=== PATIENT | female | born 1975 | race Caucasian/White ===

== ENCOUNTER 2017-02-04 16:57 | Emergency (ER) | payer OTHER ==
[2017-02-04 17:01] VITALS: BP 110/64; PULSE 77; TEMP 98.1
--- NOTE | 2017-02-04 20:01 | PDOC ---
History of Present Illness - General History Source: Patient Exam Limitations: No Limitations - History of Present Illness Initial Comments: 02/04/17 21:26 The patient is a 41 year old female, with a significant past medical history of an , who presents to the emergency department complaining of 2 months of vaginal bleeding s/p elective and Mirena IUD insertion. Patient reports current dark red vaginal bleeding with clots. Patient states she has been changing her pad every 45 minutes. Two weeks after the , patient reports following up with her FACILITY TECHNICIAN, during which she had an IUD inserted. Patient reports she has been bleeding lightly since, however, over the past week she has noted heavy bleeding. She reports associated left lower quadrant pain, nausea, and vomiting, but denies any diarrhea or constipation. She denies any associated fever, chills, or dizziness. She denies any dysuria, frequency, or urgency. She denies any recent travel or sick contacts. Allergies: NKDA Past Surgical History: None reported. Social History: Current everyday smoker. No ETOH or recreational drug use reported. <Venkatesh Medel - Last Filed: 02/04/17 23:44> <Mor Downing - Last Filed: 02/04/17 23:48> - General Chief Complaint: Pain Stated Complaint: ABD PAIN Time Seen by Provider: 02/04/17 20:01 Past History <Venkatesh Medel - Last Filed: 02/04/17 23:44> - Past Medical History Other medical history: NONE - Psycho/Social/Smoking Cessation Hx Anxiety: No Suicidal Ideation: No Smoking History: Current every day smoker Number of Cigarettes Smoked Daily: 15 Information on smoking cessation initiated: Yes 'Breaking Loose' booklet given: 02/04/17 Hx Alcohol Use: No Drug/Substance Use Hx: No Substance Use Type: None <Mor Downing - Last Filed: 02/04/17 23:48> - Past Medical History Allergies/Adverse Reactions: Allergies Allergy/AdvReac Type Severity Reaction Status Date / Time No Known Allergies Allergy Verified 02/04/17 17:01 Review of Systems - Review of Systems Able to Perform ROS?: Yes Comments:: 02/04/17 21:27 CONSTITUTIONAL: No fever, no chills, no fatigue EYES: No visual changes ENT: No ear pain, no sore throat CARDIOVASCULAR: No chest pain, no palpitations RESPIRATORY: No cough, no SOB GI: Yes: +Left lower quadrant abdominal pain, +nausea, +vomiting. No constipation, no diarrhea PELVIC: Yes: +Dark red vaginal bleeding with clots. GENITOURINARY: No dysuria, no frequency, no hematuria MUSKULOSKELETAL: No back pain, no joint pain, no myalgias SKIN: No rash NEURO: No headache <Venkatesh Medel - Last Filed: 02/04/17 23:44> *Physical Exam - Vital Signs Last Vital Signs Temp Pulse Resp BP Pulse Ox 98.1 F 77 20 110/64 100 02/04/17 16:58 02/04/17 16:58 02/04/17 16:58 02/04/17 16:58 02/04/17 16:58 - Physical Exam Comments: 02/04/17 21:27 CONSTITUTIONAL: Well-appearing; well-nourished; in no apparent distress HEAD: Normocephalic; atraumatic EYES: PERRL; EOM intact ENMT: External appears normal; normal oropharynx NECK: Supple; non-tender; no cervical lymphadenopathy CARD: Normal S1, S2; no murmurs, rubs, or gallops RESP: Normal chest excursion with respiration; breath sounds clear and equal bilaterally; no wheezes, rhonchi, or rales BACK: No cva tenderness ABD: Mild suprapubic and left lower quadrant tenderness. Soft, non-distended; no palpable organomegaly, no palpable hernias EXT: Normal ROM in all four extremities; non-tender to palpation; distal pulses intact SKIN: Warm, dry, no rash NEURO: No focal neurological deficiencies. <Venkatesh Medel - Last Filed: 02/04/17 23:44> - Vital Signs Last Vital Signs Temp Pulse Resp BP Pulse Ox 98.1 F 77 20 110/64 100 02/04/17 16:58 02/04/17 16:58 02/04/17 16:58 02/04/17 16:58 02/04/17 16:58 <Mor Downing - Last Filed: 02/04/17 23:48> ED Treatment Course - LABORATORY CBC & Chemistry Diagram: 02/04/17 21:40 02/04/17 21:40 - RADIOLOGY Radiograph Interpretation: 02/04/17 23:42 EXAM: Transvaginal US INTERPRETED BY: Dr. Olvera REVIEWED BY: Dr. Downing IMPRESSION: Intrauterine device in satisfactory position with normal thickness of the endometrial stripe. Fibroid uterus, as described above. Right ovary was not visualized. Left ovary exophytic cyst versus parapelvic cyst measuring 1.8 cm with a small amount of free fluid. Rule out partially ruptured cyst. Follow- up transvaginal pelvis ultrasound in one to 2 weeks is recommended for further evaluation. <Venkatesh Medel - Last Filed: 02/04/17 23:44> - LABORATORY CBC & Chemistry Diagram: 02/04/17 21:40 02/04/17 21:40 <Mor Downing - Last Filed: 02/04/17 23:48> Medical Decision Making - Medical Decision Making 02/04/17 23:37 Patient is a well-appearing 41-year-old female who presents to the ER with menometrorrhagia for the past 8 weeks after placement of a Mirena IUD. Patient also endorses history of mild left lower quadrant discomfort. In the ER, patient is awake and alert, hemodynamically stable. CBC is within normal limit. Transvaginal ultrasound shows an IUD in place with normal thickness endometrium. Fibroid uterus is noted. Also noted a small left ovarian cyst without evidence of torsion. At this time, patient is able tolerate by mouth and is pain free. Will discharge with OPERATIONS AND MAINTENANCE SPECIALIST follow-up for possible removal of IUD. <Mor Downing - Last Filed: 02/04/17 23:48> *DC/Admit/Observation/Transfer - Attestations Scribe Attestion: 02/04/17 21:27 Documentation prepared by Venkatesh Medel, acting as medical receptionist medical assistant for Mor Downing MD. <Venkatesh Medel - Last Filed: 02/04/17 23:44> - Attestations Physician Attestion: 02/04/17 23:36 The documentation was prepared by the scribe under my direct supervision. I have reviewed the documentation which correctly represents the findings, medical decision-making and critical action taken by me. <Mor Downing - Last Filed: 02/04/17 23:48> Diagnosis at time of Disposition: Vaginal bleeding Ovarian cyst Qualifiers: Laterality: left Qualified Code(s): N83.202 - Unspecified ovarian cyst, left side - Discharge Dispostion Disposition: HOME Condition at time of disposition: Stable - Referrals Referrals: mercury cracking tester, three-4 days [Other] - Patient Instructions Printed Discharge Instructions: Ovarian Cyst, DI for Vaginal Bleeding
[2017-02-04 21:47] LABS: BASOPHIL 0.7 % (0-2.0); EOSINOPHIL 1.5 % (0-4.5); MCH 30.5 pg (25.7-33.7); MCHC 34.1 g/dl (32.0-36.0); MEAN CELL VOLUME 89.5 fl (80-96); MEAN PLT VOLUME 9.1 fl (7.5-11.1); NEUTROPHILS 47.6 % (42.8-82.8); PLATELET COUNT 215 K/MM3 (134-434); RDW 14.1 % (11.6-15.6); WHITE BLOOD COUNT 6.9 K/mm3 (4.0-10.0)
[2017-02-04 22:33] LABS: ALBUMIN 3.4 g/dl (3.4-5.0); ANION GAP 7 (8-16); CALCIUM 9.1 mg/dL (8.5-10.1); CO2 29 mmol/L (21-32); CREATININE 0.6 mg/dL (0.55-1.02); GLUCOSE,RANDOM 98 mg/dL (74-106); SGOT/AST 9 U/L (15-37); SGPT/ALT 19 U/L (12-78)
[2017-02-04 22:36] LABS: ALK PHOS 59 U/L (45-117); BILIRUBIN,TOTAL 0.2 mg/dL (0.2-1.0); TOT PROT 6.8 g/dl (6.4-8.2)
== END 2017-02-04 23:53 | disposition home or self-care (01) ==
LOC: JER 16:57
DX: N93.8 Other specified abnormal uterine and vaginal bleeding (principal); N83.202 Unspecified ovarian cyst, left side
CPT/HCPCS: 36415; 76830-TC; 80053; 85025; 85610; 86850; 86900; 86901; 99281-25

== ENCOUNTER 2017-11-26 06:00 | Day surgery (SDC) | payer OTHER ==
[2017-11-25 13:28] VITALS: BMI 31.2
[2017-11-26] MEDS ORDERED: ceFAZolin SODIUM 1 GM VIAL IVPB ONE ×2 (08:15)
[2017-11-26] MEDS ORDERED: BUPIVACAINE HCL/PF 0.5% (5MG/ML) 10 ML VIAL IJ ONE (09:26)
[2017-11-26] MEDS ORDERED: ACETAMINOPHEN 325 MG TABLET (FP) PO PRN (09:49)
[2017-11-26] MEDS ORDERED: PROMETHAZINE HCL 25 MG/1 ML VIAL IVPUSH PRN (09:49)
[2017-11-26] MEDS ORDERED: LACTATED RINGERS SOLUTION 1,000 ML IV SCH (10:00)
--- NOTE | 2017-11-26 10:09 | OP ---
Operative Note - Note: Operative Date: 11/26/17 Pre-Operative Diagnosis: Lap band malfunction/leak Operation: Diagnostic laparoscopy. Laparoscopic removal and replacement of gastric band, port and components. Open repair of incarcerated incisional hernia. Omentectomy Post-Operative Diagnosis: Other (Lap band malfunction/leak, incarcerated incisional hernia) Surgeon: Tesfaye Buchanan Supervisor Park Workers: Donnie Gray Anesthesia: General Specimens Removed: Omentum. Lap band, port and components Estimated Blood Loss (mls): 5 Drains & Tubes with Location: Standard AP Lap Band Operative Report Dictated: Yes
[2017-11-26] MEDS ORDERED: morphine CARPU-JECT 4 MG/1 ML DISP.SYRIN IVPUSH PRN (10:30)
[2017-11-26] MEDS ORDERED: ONDANSETRON 4 MG/2 ML VIAL IVPUSH PRN (10:30)
[2017-11-26] MEDS ORDERED: ENOXAPARIN NA (PORCINE) 40 MG/0.4 ML DISP.SYRIN SQ ONE ×2 (10:30→13:00)
[2017-11-26] MEDS ORDERED: SODIUM CHLORIDE 1,000 ML IV SCH (10:30)
[2017-11-26] MEDS ORDERED: FAMOTIDINE 20 MG PREMIXED IVPB IVPB ONE (10:50)
[2017-11-26] MEDS ORDERED: ACETAMINOPHEN 1000 MG/100 ML VIAL (NON FORMULARY) IVPB ONE ×2 (11:04→11:11)
--- NOTE | 2017-11-26 11:06 | OP ---
DATE OF OPERATION: 11/26/2017 SURGEON: Tesfaye Buchanan MD TESTER ELECTRONIC SCALE: SAHARA Jorgensen PREOPERATIVE DIAGNOSIS: Lap band malfunction/leak. POSTOPERATIVE DIAGNOSES: 1. Lap band malfunction/leak. 2. Incarcerated incisional hernia. 3. Intraabdominal adhesions. PROCEDURES: 1. Diagnostic laparoscopy. 2. Laparoscopic removal of gastric band, port, and components. 3. Laparoscopic replacement of gastric band, port, and components. 4. Open repair of incarcerated incisional hernia. 5. Omentectomy. 6. Upper endoscopy/esophagogastroduodenoscopy 7. Laparoscopic lysis of adhesions. SPECIMENS: 1. Omentum. 2. Lap band, port, and components. ESTIMATED BLOOD LOSS: 5 mL. DRAINS: OG tube. BAND PLACED: Standard AP Lap band. ANESTHESIA: GET. REASON FOR PROCEDURE: This is a 42-year-old female who presents to the office for evaluation of her lap band. [place] She feels no more restriction. Multiple band fills were placed under ultrasound in the office; however, after aspiration after every single band fill, there was less and less fluid within the band, demonstrating that there was a leak. Because of this, she was consented for a laparoscopic, possible open, removal and replacement of gastric band, port, and components, possible liver biopsy, possible upper endoscopy. In addition, she had felt a bulge to the right of midline in her right upper quadrant at her prior incision consistent with a possible hernia. The risks and benefits of the procedure were explained. These included bleeding, infection, recurrence of hernia midline incision, DVT, PE, injury to surrounding abdominal structures including the stomach, liver, spleen, esophagus, colon, small bowel, vessel injury, nerve injury, leak obstruction, weight regain, stricture, vitamin deficiency, lap band slip and erosion are some of the complications. She understood and signed informed consent. DESCRIPTION OF PROCEDURE: Patient was placed supine on the operating room table. She underwent general endotracheal intubation. Foot board was placed and her legs were secured. The arms were placed out at 90 degrees, and her arms were secured. An OG tube was placed by Anesthesia. The abdomen was prepped and draped in the usual sterile fashion. A timeout was performed. An incision was made superior and to the right of the umbilicus and a Veress needle inserted. Pneumoperitoneum was established. Subsequently, the Veress needle was removed and the 5-mm laparoscopic trocar was placed under direct visualization. A 5-mm trocar was then placed in the right subcostal region. Adhesions were noted from omentum to the anterior abdominal wall, and the tubing was also adhered to it. Because of this, using hook electrocautery, the tubing and the omentum were freed from the abdominal wall. Lysis of adhesions was carefully performed, and hemostasis was noted. A 5-mm trocar was then placed in the left subcostal region, a 15-mm trocar placed superior and to the left of the umbilicus where the prior port had been placed. A stab wound was made in the subxiphoid area and a Janel clamp inserted and removed. Marielena liver retractor was inserted. This was secured to the post at the bedside. The patient was placed in reverse Trendelenburg position and the liver retractor secured. The tubing was noted, and using hook electrocautery, the band was dissected, staying on top of the band and its tubing. The band was freed circumferentially. The tubing of the band was then cut using scissors. The band was then cut and opened and removed from around the stomach. A new band was chosen. It was a Lap Band AP standard, and using the same plane, a grasper was placed behind the stomach and the band tubing grasped. The band was placed around the stomach, tubing placed through it, and the band buckle secured. The band was noted to be in good position. No evidence of slip or incarceration was noted. Endostitch with a 2-0 Ethibond suture was then used to further secure the band in position with a wrap. Again hemostasis was noted. On inspection of the abdominal cavity, there was also noted to be a small hernia at her incision that was cause of concern. The decision was made to fix this in an open fashion at the end of the procedure. The old band was then removed from the abdominal cavity and sent off to the back table. The band tubing was exteriorized. The liver retractor was removed and pneumoperitoneum desufflated. All trocars were removed. The band tubing was then secured to the port. The old port was removed in its entirety, and the tubing was noted to match. Four 2-0 Prolene sutures were placed within the fascia and used to secure the port. Again hemostasis was noted. Vicryl 3-0 was used to close the deep subcutaneous tissue at this site. An incision was then made over the level of the hernia defect, skin and subcutaneous tissue dissected. Incarcerated omentum was noted within the hernia. This was carefully transected and sent off the field as an omentectomy. The hernia was closed using a 0 Vicryl suture in a [id number] fashion. Hemostasis was noted. The deep subcutaneous tissue was then closed using 3-0 Vicryl suture as well. Biosyn 4-0 was used to close all incisions. An upper endoscopy was then performed to further evaluate the anatomy. No leak or obstruction was noted. The patient tolerated the procedure well, was transferred to the recovery room in stable condition. Lizzie [id number]
[2017-11-26] MEDS ORDERED: ONDANSETRON 4 MG/2 ML VIAL IVPUSH ONE (11:35)
[2017-11-26 11:47] LABS: HEMATOCRIT 36.4 % (32.4-45.2); HEMOGLOBIN 12.4 GM/dL (10.7-15.3); MCH 30.4 pg (25.7-33.7); MEAN CELL VOLUME 89.6 fl (80-96); PLATELET COUNT 206 K/MM3 (134-434); RBC 4.07 M/mm3 (3.60-5.2); RDW 13.7 % (11.6-15.6); WHITE BLOOD COUNT 8.5 K/mm3 (4.0-10.0)
[2017-11-26 13:41] LABS: CHLORIDE 106 mmol/L (98-107); POTASSIUM 3.6 mmol/L (3.5-5.1); SODIUM 137 mmol/L (136-145)
[2017-11-26] MEDS ORDERED: FAMOTIDINE 20 MG/50 ML IVPB 20 MG/50 ML MG IVPB SCH (14:00)
[2017-11-26 14:06] VITALS: TEMP 98.1
[2017-11-26 14:10] LABS: ANION GAP 10 (8-16); BLOOD UREA NITROGEN 8 mg/dL (7-18); CALCIUM 8.4 mg/dL (8.5-10.1); CO2 21 mmol/L (21-32); CREATININE 0.6 mg/dL (0.55-1.02); GLUCOSE,RANDOM 132 mg/dL (74-106)
[2017-11-27 08:13] VITALS: BP 135/58; PULSE 82
--- NOTE | 2017-11-27 12:26 | PATH ---
Surgical Pathology Report Patient Name: BA ALVAREZ [facility]. Rec. #: [id number] /Age/Gender: 1975 (Age: 42) / F Account: [id number] Location: [facility] Taken: 11/26/2017 Received: 11/26/2017 Reported: 11/27/2017 Physicians: Tesfaye Buchanan M.D. Specimen(s) Received A: GASTRIC BAND AND SUBCUTANEOUS PORT B: OMENTUM Clinical History Gastric band malfunction Incarcerated incisional hernia Final Diagnosis A. GASTRIC BAND AND PORT, REMOVAL: GASTRIC BAND AND PORT. MACROSCOPIC DIAGNOSIS. B. OMENTUM, EXCISION: OMENTAL ADIPOSE TISSUE WITHOUT SIGNIFICANT PATHOLOGIC FINDINGS. Electronically Signed Keyana Hui M.D. Gross Description A. Received fresh labeled "gastric band and port," are 2 portions of a disrupted gastric band measuring 5.0 x 2.0 x 1.0 cm with an attached 28 cm in length portion of white tubing. Also received within the same container is a 3 cm in diameter x 1.5 cm in depth white, circular device, consistent with a port. The port displays a 33 cm in length portion of white tubing extending from one aspect. No soft tissue is present. No sections are submitted, gross only. B. Received in formalin labeled as "omentum" multiple fragments of yellow lobulated omental adipose soft tissue measuring 3.5 x 2 x 1 cm in aggregate. Diesel Truck Technician sections are submitted in one cassette. GODWIN/11/26/2017 jannie/11/26/2017
== END 2017-11-26 16:00 | disposition home or self-care (01) ==
LOC: JASU-SURG 06:00
PROVIDERS: ATTEND Surgery
PROC: 0DV64CZ Restriction of Stomach with Extraluminal Device, Percutaneous Endoscopic Approach (ICD-10-PCS; 2017-11-26)
PROC: 0WQF0ZZ Repair Abdominal Wall, Open Approach (ICD-10-PCS; 2017-11-26)
PROC: 0DBU0ZZ Excision of Omentum, Open Approach (ICD-10-PCS; 2017-11-26)
PROC: 0DJ08ZZ Inspection of Upper Intestinal Tract, Via Natural or Artificial Opening Endoscopic (ICD-10-PCS; 2017-11-26)
PROC: 0DP64CZ Removal of Extraluminal Device from Stomach, Percutaneous Endoscopic Approach (ICD-10-PCS; principal; 2017-11-26 08:00)
DX: T85.518A Breakdown (mechanical) of other gastrointestinal prosthetic devices, implants and grafts, initial encounter (principal); K95.09 Other complications of gastric band procedure; Y93.89 Activity, other specified; Y92.89 Other specified places as the place of occurrence of the external cause; K43.2 Incisional hernia without obstruction or gangrene; K66.0 Peritoneal adhesions (postprocedural) (postinfection)
CPT/HCPCS: 36415; 74241-TC-FY; 80048; 84703; 85027; 88300-TC; 88305-TC; 94760; J0131

== ENCOUNTER 2018-02-18 06:19 | Day surgery (SDC) | payer OTHER ==
[2018-01-19 12:41] VITALS: BMI 30.7
[2018-02-18] MEDS ORDERED: DEXAMETHASONE SOD PHOSPHATE 4 MG/1 ML VIAL ONE (07:18)
[2018-02-18] MEDS ORDERED: SUCCINYLCHOLINE CHLORIDE 200 MG/10 ML VIAL ONE (07:18)
[2018-02-18] MEDS ORDERED: PROPOFOL 20 ML ONE (07:18)
[2018-02-18] MEDS ORDERED: ONDANSETRON 4 MG/2 ML VIAL ONE (07:18)
[2018-02-18] MEDS ORDERED: ceFAZolin SODIUM 1 GM VIAL ONE ×2 (07:18→08:42)
[2018-02-18] MEDS ORDERED: ROCURONIUM BROMIDE 50 MG/5 ML VIAL ONE (07:18)
[2018-02-18] MEDS ORDERED: LIDOCAINE HCL/PF 2% SDV 5ML VIAL ONE (07:18)
[2018-02-18] MEDS ORDERED: fentaNYL CITRATE 250 MCG/5 ML VIAL ONE (07:18)
[2018-02-18] MEDS ORDERED: BUPIVACAINE HCL/PF 0.5% (5MG/ML) 10 ML VIAL ONE (07:33)
[2018-02-18] MEDS ORDERED: ROPIVACAINE HCL 0.5% 30ML VIAL ONE (07:45)
[2018-02-18] MEDS ORDERED: DEXAMETHASONE SOD PHOSPHATE/PF 10 MG/ML SDV ONE (07:45)
[2018-02-18] MEDS ORDERED: MIDAZOLAM HCL 2 MG/2 ML SINGLE DOSE VIAL ONE ×2 (07:46)
[2018-02-18] MEDS ORDERED: LIDOCAINE 1%/EPI 1:100000 (20 ML MULTI DOSE VIAL) ONE (08:23)
[2018-02-18] MEDS ORDERED: ceFAZolin SODIUM 1 GM VIAL IVPB ONE (08:40)
[2018-02-18] MEDS ORDERED: LIDOCAINE 1%/EPI 1:100000 (20 ML MULTI DOSE VIAL) IJ ONE (08:48)
[2018-02-18] MEDS ORDERED: BUPIVACAINE HCL/PF 0.5% (5MG/ML) 10 ML VIAL IJ ONE (09:15)
[2018-02-18 11:21] VITALS: BP 107/59; PULSE 62; TEMP 98
--- NOTE | 2018-02-18 11:32 | HP ---
Satellite [facility] - Chief Complaint Chief Complaint: Discomfort at port site, rotation of port History Source: Patient Limitations to Obtaining History: No Limitations - Past Medical History Allergies/Adverse Reactions: Allergies Allergy/AdvReac Type Severity Reaction Status Date / Time No Known Allergies Allergy Verified 01/19/18 12:35 ...LMP: 01/14/18 - Current Medications Current Medications: Home Medications Medication Instructions Recorded NK [No Known Home Medication] 01/19/18 Satellite Physical Exam - Physical Examination Vital Signs: Vital Signs Period Temp Pulse Resp BP Sys/[place] Pulse Ox Last 24 Hr 98 F-98.4 F 62-74 18-20 101-121/59-61 96-100 Lung: Clear to auscultation Heart: Regular rate & rhythm Abdomen: Soft Neurological: Alert, Oriented Satellite Impression/Plan - Impression/Plan Impression: Port site discomfort/rotation Operative Procedure: Revision of gastric port Date to be Performed: 02/18/18
--- NOTE | 2018-02-18 11:33 | OP ---
Operative Note - Note: Operative Date: 02/18/18 Pre-Operative Diagnosis: Gastric port discomfort/rotation Operation: Revision of gastric port. Excision of scar Post-Operative Diagnosis: Same as Pre-op Surgeon: Tesfaye Buchanan Journeyman Electrician: Asif Nur Anesthesia: Local, MAC Specimens Removed: Scar Estimated Blood Loss (mls): 5 Operative Report Dictated: Yes
--- NOTE | 2018-02-18 12:24 | OP ---
DATE OF OPERATION: 02/18/2018 SURGEON: Tesfaye Buchanan MD MANAGER GOVERNMENT: Asif Nur MD PREOPERATIVE DIAGNOSIS: Malfunctioning gastric port/rotation of gastric port. POSTOPERATIVE DIAGNOSIS: Malfunctioning gastric port/rotation of gastric port. PROCEDURE: Open revision of gastric port and except of subcutaneous skin and scar. SPECIMEN: Scar/skin. ESTIMATED BLOOD LOSS: 5 mL. DRAINS: None. ANESTHESIA: MAC/local. REASON FOR PROCEDURE: This is a 42-year-old female who had a gastric band placed. She noted that she was having some discomfort at her port site, and the port seemed to have also rotated slightly. Because of this, revision of port was planned. The risks and benefits of the procedure were explained. These included bleeding, infection, hernia, NC, DVT, PE, injury to surrounding structures including the port and band tubing, subcutaneous seroma, hematoma and some other complications. She understood and signed informed consent. DESCRIPTION OF PROCEDURE: The patient was placed on the operating room table. The abdomen was prepped and draped in the usual sterile fashion. A time-out was performed. The old scar and skin was excised, and skin and subcutaneous tissue dissected out to the level of the port. The port was noted to be slightly rotated; however, it was noted to be in good position. The port was secured using a 2-0 Prolene suture down to the fascia at one of the holes within the port in order to decrease the rotation of the port. Again, the remainder of the port was noted to be in good position. To assist with burying the port further, the subcutaneous fat and tissue was sutured over the tubing and port using 3-0 Vicryl sutures. Hemostasis was obtained. The skin was closed using 4-0 Biosyn. Sterile dressings were applied. The patient tolerated the procedure well and was transferred to the recovery room in stable condition. Lizzie [id number]
--- NOTE | 2018-02-19 15:10 | PATH ---
Surgical Pathology Report Patient Name: BA ALVAREZ Med. Rec. #: [id number] /Age/Gender: 1975 (Age: 42) / F Account: [id number] Location: [facility] Taken: 02/18/2018 Received: 02/18/2018 Reported: 02/19/2018 Physicians: Tesfaye Buchanan M.D. Specimen(s) Received SCAR TISSUE Clinical History Morbid obesity Final Diagnosis SKIN, SCAR, EXCISION: SKIN WITH CHRONIC INFLAMMATION AND DERMAL FIBROSIS CONSISTENT WITH SCAR. Electronically Signed Keyana Hui M.D. Gross Description Received in formalin labeled "scar," is a 3.3 x 0.4 cm ruff, elongated, unoriented portion of skin excised to a depth of 0.7 cm. The epidermal surface displays a central, linear scar. Appliance Servicer sections are submitted in one cassette. /02/18/2018 saudi02/18/2018
== END 2018-02-18 11:30 | disposition home or self-care (01) ==
LOC: JASU-SURG 06:19
PROVIDERS: ATTEND Surgery
PROC: 0DW60CZ Revision of Extraluminal Device in Stomach, Open Approach (ICD-10-PCS; principal; 2018-02-18 08:00)
DX: K95.09 Other complications of gastric band procedure (principal)
CPT/HCPCS: 36415; 84703; 86850; 86900; 86901; 88304-TC

== ENCOUNTER 2018-02-19 22:43 | Emergency (ER) | payer OTHER ==
[2018-02-19 22:58] VITALS: BP 123/77; PULSE 70; TEMP 98.5; BMI 30.7
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
== END 2018-02-19 23:41 | disposition home or self-care (01) ==
LOC: JER 22:43
DX: Z48.815 Encounter for surgical aftercare following surgery on the digestive system (principal)
CPT/HCPCS: 99281-25

== ENCOUNTER 2018-02-28 13:09 | Inpatient (IN) | payer OTHER ==
[2018-02-28 13:17] VITALS: BMI 30.2
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
[2018-02-28] MEDS ORDERED: ACETAMINOPHEN INJECTION 100 ML IVPB ONE ×2 (13:54→21:57)
[2018-02-28] MEDS ORDERED: ACETAMINOPHEN 1000 MG/100 ML VIAL (NON FORMULARY) IVPB ONE ×2 (13:56→21:38)
[2018-02-28 14:10] LABS: BASO % 0.6 % (0-2.0); HEMATOCRIT 40.1 % (32.4-45.2); HEMOGLOBIN 13.6 GM/dL (10.7-15.3); LYMPH % 18.9 % (8-40); MCH 30.3 pg (25.7-33.7); MCHC 33.9 g/dl (32.0-36.0); MEAN CELL VOLUME 89.4 fl (80-96); MEAN PLT VOLUME 8.6 fl (7.5-11.1); MONO % 5.3 % (3.8-10.2); NEUT % 71.2 % (42.8-82.8); PLATELET COUNT 237 K/MM3 (134-434); RBC 4.49 M/mm3 (3.60-5.2); WHITE BLOOD COUNT 9.5 K/mm3 (4.0-10.0)
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
[2018-02-28 14:37] LABS: ALBUMIN 3.5 g/dl (3.4-5.0); ALK PHOS 81 U/L (45-117); ANION GAP 11 MMOL/L (8-16); BILIRUBIN,TOTAL 0.5 mg/dL (0.2-1.0); BLOOD UREA NITROGEN 13 mg/dL (7-18); CALCIUM 9.1 mg/dL (8.5-10.1); CHLORIDE 109 mmol/L (98-107); CO2 23 mmol/L (21-32); CREATININE 0.8 mg/dL (0.55-1.3); GLUCOSE,RANDOM 115 mg/dL (74-106); LIPASE 118 U/L (73-393); POTASSIUM 4.1 mmol/L (3.5-5.1); SGOT/AST 28 U/L (15-37); SGPT/ALT 32 U/L (13-61); SODIUM 143 mmol/L (136-145); TOT PROT 7.6 g/dl (6.4-8.2)
[2018-02-28 14:41] LABS: HCG,QUALITATIVE URINE Negative
[2018-02-28 14:42] LABS: URINE APPEARANCE SLCLOUDY; URINE BILIRUBIN NEGATIVE (<2.0 mg/dL); URINE COLOR YELLOW; URINE GLUCOSE (UA) NEGATIVE (NEGATIVE); URINE KETONE TRACE (NEGATIVE); URINE LEUK ESTERASE 3+ (NEGATIVE); URINE NITRITE NEGATIVE (NEGATIVE); URINE PROTEIN NEGATIVE (NEGATIVE); URINE UROBILINOGEN NEGATIVE mg/dL (0.2-1.0)
[2018-02-28 14:54] LABS: EPI CELLS FEW /HPF (FEW); URINE MUCUS RARE
[2018-02-28] MEDS ORDERED: morphine CARPU-JECT 4 MG/1 ML DISP.SYRIN IVPUSH ONE (15:05)
[2018-02-28] MEDS ORDERED: morphine SULFATE 4 MG/ML VIAL ONE ×2 (15:07→18:19)
[2018-02-28] MEDS ORDERED: CEFAZOLIN 1 GM in DEXTROSE 5%-WATER - 50 ML IVPB ONE (18:00)
[2018-02-28] MEDS ORDERED: ceFAZolin SODIUM 1 GM VIAL ONE (18:17)
[2018-02-28] MEDS ORDERED: MORPHINE SULFATE 2 MG/ML VIAL ONE (18:18)
[2018-02-28] MEDS ORDERED: ONDANSETRON 4 MG/2 ML VIAL ONE (18:30)
[2018-02-28] MEDS ORDERED: morphine CARPU-JECT 10 MG/1 ML DISP.SYRIN IVPUSH ONE (18:30)
[2018-02-28] MEDS ORDERED: ONDANSETRON 4 MG/2 ML VIAL IVPUSH ONE (18:44)
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
[2018-02-28] MEDS ORDERED: ONDANSETRON 4 MG/2 ML VIAL IVPUSH PRN (21:46)
[2018-02-28] MEDS: DEXTROSE 5%-0.45% SALINE 1,000 ML IV SCH (21:56)
[2018-02-28] MEDS ORDERED: MELATONIN 5 MG TABLETS PO ONE (23:58)
[2018-03-01] MEDS: morphine SULFATE 4 MG/ML VIAL IVPUSH PRN ×2 (00:08→05:42)
[2018-03-01] MEDS ORDERED: ceFAZolin SODIUM 1 GM VIAL ONE ×3 (01:58→17:09)
[2018-03-01] MEDS ORDERED: DEXTROSE 5%-WATER - 50 ML IVPB ONE ×3 (01:58→17:09)
[2018-03-01] MEDS: CEFAZOLIN 1 GM in DEXTROSE 5%-WATER - 50 ML IVPB SCH ×3 (03:11→17:43)
[2018-03-01 07:26] LABS: BASO % 0.6 % (0-2.0); EOS % 6.4 % (0-4.5); HEMATOCRIT 34.7 % (32.4-45.2); HEMOGLOBIN 11.5 GM/dL (10.7-15.3); LYMPH % 28.6 % (8-40); MCH 29.5 pg (25.7-33.7); MCHC 33.2 g/dl (32.0-36.0); MEAN CELL VOLUME 88.9 fl (80-96); MEAN PLT VOLUME 8.9 fl (7.5-11.1); MONO % 6.8 % (3.8-10.2); NEUT % 57.6 % (42.8-82.8); PLATELET COUNT 213 K/MM3 (134-434); RDW 14.2 % (11.6-15.6); WHITE BLOOD COUNT 7.8 K/mm3 (4.0-10.0)
[2018-03-01 07:59] LABS: ANION GAP 11 MMOL/L (8-16); BLOOD UREA NITROGEN 6 mg/dL (7-18); CALCIUM 8.4 mg/dL (8.5-10.1); CHLORIDE 105 mmol/L (98-107); CO2 24 mmol/L (21-32); CREATININE 0.5 mg/dL (0.55-1.3); GLUCOSE,RANDOM 92 mg/dL (74-106); MAGNESIUM 2.1 mg/dL (1.8-2.4); PHOSPHOROUS 3.4 mg/dL (2.5-4.9); POTASSIUM 3.7 mmol/L (3.5-5.1); SODIUM 140 mmol/L (136-145)
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
[2018-03-01] MEDS ORDERED: morphine SULFATE 4 MG/ML VIAL IVPUSH PRN (08:24)
[2018-03-01] MEDS ORDERED: diazePAM CARPU-JECT 10 MG/2 ML DISP.SYRIN IVPUSH ONE (08:24)
[2018-03-01] MEDS: DEXTROSE 5%-0.45% SALINE 1,000 ML IV SCH ×2 (09:29→21:40)
[2018-03-01] MEDS ORDERED: SODIUM CHLORIDE 250 ML IV SCH (11:15)
[2018-03-01] MEDS ORDERED: FAMOTIDINE 20 MG/50 ML IVPB 20 MG/50 ML MG IVPB SCH (11:30)
[2018-03-01] MEDS: KETOROLAC TROMETHAMINE 15 MG/ML VIAL IVPUSH PRN ×2 (15:39→23:36)
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
--- NOTE | 2018-03-01 18:01 | CON.PSY ---
Psychiatry Consult Chief Complaint: I aM FINE, I dont have any mental problems. Never seen a Psychaitrist in my life. - Previous Psychiatric Treatment Outpatient: None Inpatient: None - Previous Substance Abuse Treatment Outpatient: None Inpatient: None - Current Medications Current Medications: Active Medications Dextrose/Sodium Chloride (D5-1/2ns -) 1,000 mls @ 100 mls/hr IV ASDIR CITLALY Last Admin: 03/01/18 09:29 Dose: 100 mls/hr Cefazolin Sodium 1 gm/ (Dextrose) 50 mls @ 100 mls/hr IVPB Q8H-IV CITLALY Last Admin: 03/01/18 17:43 Dose: 100 mls/hr Sodium Chloride (Normal Saline -) 250 mls @ 250 mls/hr IV ASDIR CITLALY Last Admin: 03/01/18 11:00 Dose: 250 mls/hr Famotidine/Sodium Chloride (Pepcid 20 Mg Premixed Ivpb -) 20 mg in 50 mls @ 100 mls/hr IVPB DAILY CITLALY Last Admin: 03/01/18 11:45 Dose: 100 mls/hr Ketorolac Tromethamine (Toradol Injection -) 15 mg IVPUSH Q6H PRN PRN Reason: PAIN SCALE 6-10 Stop: 03/06/18 11:15 Last Admin: 03/01/18 15:39 Dose: 15 mg Ondansetron HCl (Zofran Injection) 4 mg IVPUSH Q6H PRN PRN Reason: NAUSEA - Allergies Allergies: Allergies Allergy/AdvReac Type Severity Reaction Status Date / Time No Known Allergies Allergy Verified 02/28/18 13:17 - Current Living Status Usual Living Arrangement: With Child - Current Mental Status Evaluation Appearance: Well Groomed Attitude: Cooperative - Affect Affect: Full Range Appropriateness: Appropriate to Content - Mood Mood: Euthymic - Speech/Language Expressive: Coherent - Psychomotor Activity Psychomotor Activity: Normal - Thought Process Thought Process: Intact - Thought Content Hallucinations: Absent Delusions: Absent - Self Perception Self Perception: No Impairment - Cognition Attention: Alert Orientation: Time Memory, Immediate Recall: Intact Memory, Short Term: 3/3 Memory, Remote with Promptin/3 - Concentration Serial Sevens Intact: Yes Simple Calculations Intact: Yes - Abstraction Proverb Interpretation: Intact Judgement: Intact - Insight Insight: Intact - Impulse Control Impulse Control: Good Control - Suicidal Ideation Suicidal Ideation: No - Homicidal Ideation Homicidal Ideation: No Assessment/Plan 1) no psych meds recemmended. 2) Re eval as needed.
[2018-03-02] MEDS ORDERED: DEXTROSE 5%-WATER - 50 ML IVPB ONE (01:12)
[2018-03-02] MEDS ORDERED: ceFAZolin SODIUM 1 GM VIAL ONE (01:12)
[2018-03-02] MEDS: CEFAZOLIN 1 GM in DEXTROSE 5%-WATER - 50 ML IVPB SCH (01:18)
[2018-03-02] MEDS: DEXTROSE 5%-0.45% SALINE 1,000 ML IV SCH (04:25)
[2018-03-02 05:46] VITALS: TEMP 98.5
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
[2018-03-02 09:30] VITALS: BP 85/60; PULSE 94
[2018-03-02] MEDS ORDERED: BACITRACIN 15 GM TUBE TOPICAL OINTMENT TP SCH (10:00)
== END 2018-03-02 09:34 | disposition home or self-care (01) | DRG 384 ==
LOC: JER 13:09 → JERBED 21:29 → J8W 22:23
PROVIDERS: ADMIT Internal Medicine; ATTEND Family Medicine
DX: S30.1XXA Contusion of abdominal wall, initial encounter (principal); K95.09 Other complications of gastric band procedure; E66.01 Morbid (severe) obesity due to excess calories; F17.210 Nicotine dependence, cigarettes, uncomplicated; M48.9 Spondylopathy, unspecified; Y84.8 Other medical procedures as the cause of abnormal reaction of the patient, or of later complication, without mention of misadventure at the time of the procedure; V89.2XXA Person injured in unspecified motor-vehicle accident, traffic, initial encounter; Y93.89 Activity, other specified; Y92.488 Other paved roadways as the place of occurrence of the external cause; Y99.8 Other external cause status; M54.2 Cervicalgia; Z68.30 Body mass index [BMI] 30.0-30.9, adult
CPT/HCPCS: 36415; 74177-TC; 80048; 80053; 81003; 81015; 83605; 83690; 83735; 84100; 84703; 85025; 87086; 99284-25; J0131

== ENCOUNTER 2019-12-23 19:02 | Emergency (ER) | payer OTHER ==
--- NOTE | 2019-12-23 19:10 | PDOC ---
Rapid Medical Evaluation Time Seen by Provider: 12/23/19 19:06 Medical Evaluation: Allergies Allergy/AdvReac Type Severity Reaction Status Date / Time No Known Allergies Allergy Verified 09/02/19 18:28 12/23/19 19:07 CC: cooking with vinegar which triggered a dry hacking cough but a few days prior had itchy eyes and sneezing and took otc meds with mod effect. denies fever, + itching so took benadryl and dayquil 1 hr ago Exam: raspy voice, vss, insp wheeze to rt side, appears dyspneic 12/23/19 19:12 Discharge Disposition - Diagnosis Allergic reaction - Referrals - Patient Instructions - Post Discharge Activity
[2019-12-23 19:11] VITALS: BP 130/106; PULSE 77; TEMP 98; BMI 30.7
[2019-12-23] MEDS ORDERED: predniSONE 20 MG TABLET (UD) PO ONE (19:11)
[2019-12-23] MEDS ORDERED: diphenhydrAMINE HCL 25 MG CAPSULE (FP) PO ONE ×3 (19:11→19:28)
[2019-12-23] MEDS ORDERED: predniSONE 20 MG TABLET (UD) ONE (19:29)
--- NOTE | 2019-12-23 19:35 | PDOC ---
History of Present Illness - General Chief Complaint: Allergic Reaction Stated Complaint: SOB/ DIFF BREATHING Time Seen by Provider: 12/23/19 19:06 History Source: Patient - History of Present Illness Timing/Duration: reports: other Past History - Medical History Allergies/Adverse Reactions: Allergies Allergy/AdvReac Type Severity Reaction Status Date / Time No Known Allergies Allergy Verified 12/23/19 19:12 Home Medications: Ambulatory Orders Fluticasone Prop 0.05% Nasal [Flonase -] 1 - 2 spray NS BID #1 spray.pump 12/23/19 Loratadine [Claritin] 10 mg PO DAILY #14 tablet 12/23/19 predniSONE [Deltasone -] 40 mg PO DAILY #8 tablet 12/23/19 Anemia: Yes COPD: No - Surgical History Abdominal Surgery: Yes (lap band) - Immunization History Immunization Up to Date: Yes - Psycho-Social/Smoking History Smoking History: Never smoked Have you smoked in the past 12 months: Yes Number of Cigarettes Smoked Daily: 20 Cigars Per Day: 20 'Breaking Loose' booklet given: 11/26/17 - Substance Abuse Hx (Audit-C & DAST Scrn) How often the patient has a drink containing alcohol: Never Score: In Men: 4 or > Positive; In Women: 3 or > Positive: 0 Screen Result (Pos requires Nsg. Audit-10AR): Negative Review of Systems - Review of Systems Constitutional: No: Chills, Fever HEENTM: Yes: Nose Congestion Respiratory: Yes: Cough. No: Shortness of Breath, Stridor, Wheezing Integumentary: No: Pruritus, Rash *Physical Exam - Vital Signs Last Vital Signs Temp Pulse Resp BP Pulse Ox 98 F 77 20 130/106 H 97 12/23/19 19:09 12/23/19 19:09 12/23/19 19:09 12/23/19 19:09 12/23/19 19:09 - Physical Exam General Appearance: Yes: Appropriately Dressed. No: Apparent Distress HEENT: positive: Other (minimal periorbital edema, no chemosis or tearing) Respiratory/Chest: positive: Lungs Clear, Normal Breath Sounds. negative: Respiratory Distress Cardiovascular: positive: Regular Rate, S1, S2 Integumentary: positive: Dry, Warm. negative: Rash Neurologic: positive: Fully Oriented, Alert, Normal Mood/Affect Medical Decision Making - Medical Decision Making 12/23/19 19:29 44 yo F, no pmhx, here w/ nasal congestion, sneezing, coughing and mild b/l srinivasan-orbital edema x several days. No SOB, CP, loss of taste, smell, f/c. States 1 day prior to onset of sxs, pt states she had artificial lashes placed but has since had salon remove them as pt states she thought lashes were cause of her sxs. No itching to eyes or rash see exam Allergic rhinitis Dc w/ symptomatic tx To return as needed Discharge - Discharge Information Problems reviewed: Yes Clinical Impression/Diagnosis: Allergic reaction Qualifiers: Encounter type: initial encounter Qualified Code(s): T78.40XA - Allergy, unspecified, initial encounter Condition: Good Disposition: HOME - Additional Discharge Information Prescriptions: Loratadine [Claritin] 10 mg PO DAILY #14 tablet predniSONE [Deltasone -] 40 mg PO DAILY #8 tablet Fluticasone Prop 0.05% Nasal [Flonase -] 1 - 2 spray NS BID #1 spray.pump - Follow up/Referral Referrals: Justin Sanchez MD [Primary Care Provider] - - Patient Discharge Instructions Patient Printed Discharge Instructions: Allergic Rhinitis Additional Instructions: Take medications as directed and return for any worsening of symptoms - Post Discharge Activity
== END 2019-12-23 19:38 | disposition home or self-care (01) ==
LOC: JERFT 19:02
DX: T78.40XA Allergy, unspecified, initial encounter (principal)
CPT/HCPCS: 99284-25

== ENCOUNTER 2021-01-18 18:12 | Emergency (ER) | payer OTHER ==
[2021-01-18 18:55] VITALS: BP 105/67; PULSE 99; TEMP 98.4
[2021-01-18 20:25] LABS: BASO % 0.9 % (0-2.0); EOS % 1.6 % (0-4.5); HEMOGLOBIN 14.7 GM/dL (10.7-15.3); LYMPH % 34.4 % (8-40); MCH 31.7 pg (25.7-33.7); MEAN CELL VOLUME 90.6 fl (80-96); MEAN PLT VOLUME 8.4 fl (7.5-11.1); MONO % 4.7 % (3.8-10.2); NEUT % 58.4 % (42.8-82.8); PLATELET COUNT 265 10^3/uL (134-434); RBC 4.64 M/mm3 (3.60-5.2); RDW 14.2 % (11.6-15.6); WHITE BLOOD COUNT 9.1 K/mm3 (4.0-10.0)
[2021-01-18 20:32] LABS: INR 0.9 (0.83-1.09); PROTHROMBIN TIME (PATIENT) 10.9 SEC (9.7-13.0)
[2021-01-18 20:46] LABS: ALBUMIN 3.7 g/dl (3.4-5.0); BLOOD UREA NITROGEN 7.9 mg/dL (7-18); CALCIUM 8.9 mg/dL (8.5-10.1)
[2021-01-18 20:49] LABS: CREATININE 0.8 mg/dL (0.55-1.3)
[2021-01-18 20:51] LABS: BILIRUBIN,TOTAL 0.2 mg/dL (0.2-1); TOT PROT 7.5 g/dl (6.4-8.2)
[2021-01-18 22:04] LABS: EPI CELLS >36 /uL (0-25.1); HCG,QUALITATIVE URINE Negative; HYALINE CASTS 1 /uL (0-3.1); URINE APPEARANCE CLEAR; URINE BACTERIA 203 /uL (0-1359); URINE BILIRUBIN NEGATIVE (NEGATIVE); URINE COLOR YELLOW; URINE GLUCOSE (UA) NEGATIVE (NEGATIVE); URINE KETONE NEGATIVE (NEGATIVE); URINE LEUK ESTERASE TRACE (NEGATIVE); URINE NITRITE NEGATIVE (NEGATIVE); URINE PROTEIN NEGATIVE (NEGATIVE); URINE RBC 13 /uL (0-23.9); URINE UROBILINOGEN 0.2 mg/dL (0.2-1.0); URINE WBC 50 /uL (0-25.8)
== END 2021-01-18 23:36 | disposition home or self-care (01) ==
LOC: JER 18:12
DX: R10.32 Left lower quadrant pain (principal)
CPT/HCPCS: 36415; 74177-TC; 80053; 81003; 83690; 84703; 85025; 85610; 99285-25; Q9967

== ENCOUNTER 2021-06-15 16:24 | Emergency (ER) | payer OTHER ==
[2021-06-15 16:42] VITALS: BP 107/60; PULSE 87; TEMP 98.1; BMI 28.8
[2021-06-15] MEDS ORDERED: DEXAMETHASONE LIQUID 0.5 MG/5 ML PO ONE (18:05)
[2021-06-15] MEDS ORDERED: hydrOXYzine PAMOATE 50 MG CAPSULE (FP) PO ONE (18:05)
[2021-06-15] MEDS ORDERED: hydrOXYzine PAMOATE 25 MG CAPSULE (FP) PO ONE (18:09)
[2021-06-15] MEDS ORDERED: DEXAMETHASONE SOD PHOSPHATE 10 MG/1 ML VIAL ONE (18:09)
== END 2021-06-15 18:35 | disposition home or self-care (01) ==
LOC: JERFT 16:24
DX: J02.9 Acute pharyngitis, unspecified (principal); F43.0 Acute stress reaction
CPT/HCPCS: 99283-25

== ENCOUNTER 2023-07-24 14:40 | Emergency (ER) | payer OTHER ==
[2023-07-24 15:11] VITALS: BP 129/89; PULSE 102; RESP 21; TEMP 99.3; BMI 30.7
[2023-07-24] MEDS ORDERED: ALBUTEROL SO4 2.5/IPRATROPIUM 0.5 INH SOL 3 ML VIAL.NEB. NEB ONE (15:26)
[2023-07-24] MEDS: ALBUTEROL SO4 2.5/IPRATROPIUM 0.5 INH SOL 3 ML VIAL.NEB. NEB ONE (15:36)
[2023-07-24] MEDS ORDERED: DEXAMETHASONE SOD PHOSPHATE 10 MG/1 ML VIAL ONE (15:56)
[2023-07-24] MEDS: DEXAMETHASONE SOD PHOSPHATE 10 MG/1 ML VIAL IM ONE (15:57)
== END 2023-07-24 17:02 | disposition home or self-care (01) ==
LOC: JER 14:40
PROC: 3E023GC Introduction of Other Therapeutic Substance into Muscle, Percutaneous Approach (ICD-10-PCS; principal; 2023-07-24)
PROC: 3E0F7GC Introduction of Other Therapeutic Substance into Respiratory Tract, Via Natural or Artificial Opening (ICD-10-PCS; 2023-07-24)
DX: R06.02 Shortness of breath (principal); J45.909 Unspecified asthma, uncomplicated
CPT/HCPCS: 71046-TC-FY; 93005; 93010; 99284-25; J1100

== ENCOUNTER 2023-10-07 15:08 | Emergency (ER) | payer OTHER ==
[2023-10-07 15:25] VITALS: BP 113/84; PULSE 89; RESP 17; TEMP 98; BMI 30.5
[2023-10-07] MEDS ORDERED: ACETAMINOPHEN INJECTION 100 ML IVPB ONE (16:12)
[2023-10-07] MEDS ORDERED: MAG HYDROX/AL HYDROX/SIMETH 30 ML UNIT-DOSE CUP ONE (16:12)
[2023-10-07] MEDS ORDERED: FAMOTIDINE 20 MG/50 ML IVPB 20 MG/50 ML MG IVPB ONE (16:12)
[2023-10-07] MEDS: FAMOTIDINE 20 MG/50 ML IVPB 20 MG/50 ML MG IVPB ONE (16:15)
[2023-10-07] MEDS: ACETAMINOPHEN 1000 MG/100 ML BAG IVPB ONE (16:15)
[2023-10-07] MEDS: MAG HYDROX/AL HYDROX/SIMETH -MYLANTA- ORAL SUSPENSION PO ONE (16:15)
[2023-10-07 16:23] LABS: BASO % 0.7 % (0-2.0); EOS % 0.9 % (0-4.5); HEMATOCRIT 43.6 % (32.4-45.2); HEMOGLOBIN 15.1 GM/dL (10.7-15.3); LYMPH % 29.7 % (8-40); MCH 31.5 pg (25.7-33.7); MCHC 34.6 g/dl (32.0-36.0); MEAN CELL VOLUME 91.1 fl (80-96); MEAN PLT VOLUME 8.3 fl (7.5-11.1); NEUT % 63.7 % (42.8-82.8); PLATELET COUNT 312 10^3/uL (134-434); RBC 4.78 M/mm3 (3.60-5.2); RDW 14.3 % (11.6-15.6); WHITE BLOOD COUNT 10.8 K/mm3 (4.0-10.0)
[2023-10-07] MEDS: SODIUM CHLORIDE 0.9% 500 ML INFUS.BAG IV ONE (16:23)
[2023-10-07 16:31] LABS: INR 0.99 (0.83-1.09); PROTHROMBIN TIME (PATIENT) 11.5 SEC (9.7-13.0)
[2023-10-07 16:41] LABS: POTASSIUM 4.2 mmol/L (3.5-5.1)
[2023-10-07 16:43] LABS: CALCIUM 9.8 mg/dL (8.5-10.1)
[2023-10-07 16:44] LABS: ALBUMIN 3.9 g/dl (3.4-5.0); BLOOD UREA NITROGEN 9.6 mg/dL (7-18)
[2023-10-07 16:47] LABS: CREATININE 0.7 mg/dL (0.55-1.3)
[2023-10-07 16:48] LABS: BILIRUBIN,TOTAL 0.4 mg/dL (0.2-1); TOT PROT 7.7 g/dl (6.4-8.2)
[2023-10-07 16:54] LABS: EPI CELLS 24 /uL (0-25.1); HYALINE CASTS 3 /uL (0-3.1); PH,URINE 5.5 (5.0-8.0); URINE APPEARANCE CLOUDY; URINE BACTERIA 1058 /uL (0-1359); URINE BILIRUBIN NEGATIVE (NEGATIVE); URINE COLOR YELLOW; URINE GLUCOSE (UA) NEGATIVE (NEGATIVE); URINE KETONE NEGATIVE (NEGATIVE); URINE LEUK ESTERASE 3+ (NEGATIVE); URINE NITRITE NEGATIVE (NEGATIVE); URINE PROTEIN NEGATIVE (NEGATIVE); URINE RBC 17 /uL (0-23.9); URINE UROBILINOGEN 0.2 mg/dL (0.2-1.0); URINE WBC 1744 /uL (0-25.8)
[2023-10-07 16:56] LABS: HCG,QUALITATIVE URINE Negative
[2023-10-07] MEDS ORDERED: CEFTRIAXONE 1 GM/50 ML BAG ONE (17:48)
[2023-10-07] MEDS: CEPHALEXIN MONOHYDRATE 500 MG CAPSULE (UD) PO ONE (17:53)
[2023-10-07] MEDS: CEFTRIAXONE 1,000 MG in DEXTROSE 5%-WATER - 50 ML IVPB ONE (17:53)
== END 2023-10-07 18:12 | disposition home or self-care (01) ==
LOC: JER 15:08
PROC: 3E03329 Introduction of Other Anti-infective into Peripheral Vein, Percutaneous Approach (ICD-10-PCS; principal; 2023-10-07)
PROC: 3E033GC Introduction of Other Therapeutic Substance into Peripheral Vein, Percutaneous Approach (ICD-10-PCS; 2023-10-07)
PROC: 3E033NZ Introduction of Analgesics, Hypnotics, Sedatives into Peripheral Vein, Percutaneous Approach (ICD-10-PCS; 2023-10-07)
DX: R11.2 Nausea with vomiting, unspecified (principal); R42 Dizziness and giddiness; R51.9 Headache, unspecified; R10.9 Unspecified abdominal pain; K59.09 Other constipation; N39.0 Urinary tract infection, site not specified
CPT/HCPCS: 36415; 71046-TC-FY; 80053; 81003; 83690; 84484; 84702; 84703; 85025; 85610; 85730; 86850; 86900; 86901; 87086; 93005; 93010; 99285-25; J0131